=== PATIENT | male | born 1950 | race Caucasian/White ===

== ENCOUNTER → 2016-11-18 | Outpatient (CLI) | payer OTHER, MEDICARE | LOC: FCPNEURO 23:26 | PROVIDERS: ATTEND Psychiatry & Neurology Sleep Medicine | DX: G47.33 Obstructive sleep apnea (adult) (pediatric) (principal); G47.34 Idiopathic sleep related nonobstructive alveolar hypoventilation ==

== ENCOUNTER → 2017-06-05 | Outpatient (CLI) | payer OTHER, MEDICARE | LOC: FIMAGING 14:41 | PROVIDERS: ATTEND Internal Medicine Critical Care Medicine | DX: M48.54XA Collapsed vertebra, not elsewhere classified, thoracic region, initial encounter for fracture (principal); I25.10 Atherosclerotic heart disease of native coronary artery without angina pectoris; I26.99 Other pulmonary embolism without acute cor pulmonale ==

== ENCOUNTER → 2017-06-26 | Outpatient (CLI) | payer OTHER, MEDICARE | LOC: BHFA 11:00 | PROVIDERS: ATTEND Internal Medicine Cardiovascular Disease | DX: R06.02 Shortness of breath (principal) | CPT/HCPCS: 93308; 94060; 94070; 94726; 94729; J7674 ==

== ENCOUNTER → 2018-04-06 | Outpatient (CLI) | payer OTHER, MEDICARE ==
[~2018-04-06] MED LIST: GADOBUTROL 10 ML VIAL IVP ONE
== END | disposition home or self-care (01) ==
LOC: FIMAGING 10:23
PROVIDERS: ATTEND Physician Assistant Medical
DX: R41.3 Other amnesia (principal); R90.82 White matter disease, unspecified; G31.9 Degenerative disease of nervous system, unspecified; Z87.820 Personal history of traumatic brain injury; Z85.47 Personal history of malignant neoplasm of testis
CPT/HCPCS: 70553; A9585; 82565-PO